=== PATIENT | male | born 1975 | race Caucasian/White ===

== ENCOUNTER → 2022-02-01 | Outpatient (CLI) | payer OTHER ==
--- NOTE | 2022-02-02 11:43 | RAD ---
EXAM: Abdomen and pelvis CT without intravenous contrast. HISTORY: Flank pain. TECHNIQUE: Computed tomographic images of the abdomen and pelvis were obtained without contrast. Mult iplanar reformatting was performed. *One or more of the following individualized dose reduction techniques were utilized for this examina tion: 1. Automated exposure control. 2. Adjustment of the mA and/or kV according to patient size. 3. Use of iterative reconstruction technique. COMPARISON: None. FINDINGS: Evaluation of the lower thorax is unremarkable. No hepatic lesion is seen. The gallbladder, pancreas, spleen and adrenal glands are unremarkable. There are 1 mm and 2 mm nonobstructing left re nal stones. No ureteral stone is seen. There is no hydronephrosis. There is no suspicious renal lesio n. There is no appendicitis. There is no bowel obstruction. The bladder is unremarkable. The aorta is no rmal in caliber. There is stranding within the root of the mesentery, a nonspecific finding. This is not within limits to suggest mesenteric panniculitis. There is avascular necrosis involving the super ior left greater than right femoral heads. There is an incidental transitional lumbosacral segment. IMPRESSION: 1. No convincing acute abdominal or pelvic finding. 2. Tiny nonobstructing left renal stones. 3. Bilateral femoral head avascular necrosis. Electronically signed by: Cecile Katz MD (02/01/2022 12:53 PM) [facility]
== END ==
LOC: CT 12:17
PROVIDERS: ATTEND Family Medicine Sports Medicine
DX: N20.0 Calculus of kidney (principal); M87.9 Osteonecrosis, unspecified
CPT/HCPCS: 74176